=== PATIENT | male | born 1955 | race Caucasian/White ===

== ENCOUNTER → 2021-01-22 00:39 | Outpatient (CLI) | payer MEDICARE, SELFPAY ==
[2021-01-22 18:32] LABS: SARS-CoV-2 RNA PCR Negative
== END ==
PROVIDERS: PCP Family Medicine; Visit Provider Surgery
DX: Z01.812 Encounter for preprocedural laboratory examination (principal); Z20.822 Contact with and (suspected) exposure to COVID-19
CPT/HCPCS: C9803; U0003; U0005

== ENCOUNTER 2021-01-25 00:28 | Day surgery (SDC) | payer MEDICARE, SELFPAY ==
[2021-01-21 15:04] VITALS: BMI 24.7
--- NOTE | 2021-01-24 09:40 | WPDANESEPPF ---
Anes - Initial Pre Proc Eval Procedure: Operation Date: 01/25/21 09:30 Proposed Procedures p Left Inguinal Hernia Repair - Jace Meek MD Date/Time: 01/24/21 09:40 Surgeon: Jace Meek MD Pre Op Diagnosis: Left Inguinal Hernia Patient Data Age: 65 Gender: M Height: 1.83 m Weight: 82.72 kg Allergies Allergy/AdvReac Type Severity Reaction Status Date / Time No Known Allergies Allergy Verified 01/21/21 14:54 Home Medications Medication Instructions Recorded Confirmed Type No Home Medications 10/11/20 01/21/21 History Patient hx anesthesia problems: none Family hx anesthesia problems: none PMFSH Past Medical History Medical History Barretts esophagus DAKOTA (obstructive sleep apnea) Osteoarthritis Surgical History Surgical History H/O shoulder surgery History of appendectomy Family History Family History Father Family history of malignant neoplasm Social History Social History Smoking status: Never smoker Second hand tobacco smoke exposure: Yes Alcohol intake: never Substance use: never Substance use type: does not use Living arrangements: with family Spiritual care concerns: No Anes - Eval Final PreProcedure Day of Procedure 01/24/21 09:40 Patient weight: normal Heart: regular rate and rhythm Lungs: clear to auscultation and normal air movement Airway: Mallampati scale class II Neurological: alert and oriented Last oral intake: >/= 8 hours ASA classification: III Emergent: no Anesthetic plan: proceed Anesthesia type and monitoring: general GIVS and standard monitoring Informed Consent: The patient's anesthetic plan and its attendant risks and benefits were discussed with the patient/family/POA. Questions were solicited and answers provided to the satisfaction of the patient/family/POA.
[2021-01-25 07:52] VITALS: BP 145/86; PULSE 69; RESP 20; TEMP 36.3; O2SAT 100
--- NOTE | 2021-01-25 08:25 | PM.SD2 ---
Same Day Admit/Disch: HPI History of Present Illness Chief complaint: Left Inguinal Hernia Narrative: Vince Valenzuela is a 65 year old male Who has noticed a left groin bulge for at least 9 months. He was seen in the office and found to have a large left inguinal hernia that is reducible. He is taken to surgery now for left inguinal hernia repair under anesthesia. [facility] Past Medical History Medical History Barretts esophagus DAKOTA (obstructive sleep apnea) Osteoarthritis Surgical History Surgical History H/O shoulder surgery History of appendectomy Family History Family History Father Family history of malignant neoplasm Social History Social History Smoking status: Never smoker Second hand tobacco smoke exposure: Yes Alcohol intake: never Substance use: never Substance use type: does not use Living arrangements: with family Spiritual care concerns: No Same Day Admit/Disch: Med Pre-admit Medications Home Medications Medication Instructions Recorded Confirmed Type hydrocodone-acetaminophen 1 - 2 tablet PO Q6H PRN #7 tablet 01/25/21 Rx ibuprofen 600 mg PO Q6H PRN #14 tablet 01/25/21 Rx Exam Const: General: comfortable, no acute distress, alert and awake HENMT: Head: normocephalic and atraumatic Mouth: Yes Normal oral and palatal mucosa present Eyes: Conjunctivae: conjunctivae normal Pupils: Equal, round and reactive pupils present EOM: EOMs intact bilaterally Neck: Neck: normal visual inspection, no lymphadenopathy and nontender Resp: Effort & Inspection: normal respiratory effort Auscultation: clear to auscultation bilaterally Cardio: Rate: regular rate Rhythm: regular rhythm Heart sounds: no gallops, no murmurs and no rubs GI: Inspection: non-distended GI Palp: Yes Soft to palpation, No Tenderness to palpation present (GI), No Hepatomegaly present and No Splenomegaly present : General: Yes no CVA tenderness Male General Exam: Yes hernia ( Large left inguinal hernia, reducible, nontender) Penis: Yes normal penis Scrotum: scrotum normal and inguinal hernia on the left ( Large left inguinal hernia, nontender, reducible.) Testes: Testes normal Skin: Lesions: no lesions Rashes: no rashes Neuro: General: no focal motor deficits and CN's II-XI intact bilaterally Cranial nerves: Yes Equal, round and reactive pupils present, Yes Bilaterally intact EOM present, Yes facial symmetry and Yes Midline tongue present Speech: normal speech Motor exam (neuro): 5/5 motor strength present throughout and Motor abnormalities not present Extrem: General: no clubbing, cyanosis or edema and edema Psych: Affect: normal affect Thought process: Normal thought process present Insight: Good insight present (Psych) DS: Summary Time Spent with Patient Time attestation: Total time spent providing and/or coordinating discharge services: DS: Admitting Diagnosis Admitting Diagnosis Admitting Diagnosis: left inguinal hernia - plan to proceed with outpatient left inguinal hernia repair with mesh. The procedure the risks the benefits have been discussed with the patient. All questions were answered. He understands and agrees to go ahead. Eduardo's esophagus history no dysplasia obstructive sleep apnea Discharge Plan Discharge Patient Disposition: Home, Self-Care Discharge Instructions: 1. May shower the day after surgery over incision. 2. Call office for: -Wound increasingly painful or bleeding -Vomiting -Fever of greater than 101 degrees 3. Expect some blood on dressing or on skin. 4. If no bowel movement for three days, take 1 oz. (30 ml) Milk of Magnesia; if no results, take Fleets enema. 5. No heavy lifting > 15-20 pounds for 2 weeks. 6. No driving for
--- NOTE | 2021-01-25 08:29 | WPDHPUPDATE1 ---
History and Physical Update Update Date/Time: 01/25/21 08:29 History and Physical has been reviewed, including an updated exam of the patient. There are NO changes in the patient's condition. Risks, benefits, and alternatives have been discussed and questions answered. Patient agrees to proceed with procedure.
[2021-01-25] MEDS: ACETAMINOPHEN 500 MG TABLET 1000 MG PO (08:33)
[2021-01-25] MEDS: LACTATED RINGERS 1,000 ML 30 ML IV CONT ×2 (08:40→11:48)
[2021-01-25] MEDS: KETOROLAC 15 MG/ML VIAL (*BKC) IV PUSH (08:46)
[2021-01-25] MEDS: ceFAZolin 2 GM/D5W 50 ML 2 GM/50 ML BAG IVPB (10:13)
[2021-01-25] MEDS: BUPIVACAINE HCL 0.5% PF 30 ML VIAL INFILTRATE (10:35)
--- NOTE | 2021-01-25 11:37 | SUR.OPER ---
EBL 5
[2021-01-25 11:48] VITALS: BP 113/70; PULSE 66; RESP 12; O2SAT 100
--- NOTE | 2021-01-25 12:03 | PM.PROC ---
Procedure Note - Detailed Date of procedure: 01/25/21 Pre-op diagnosis: Left Inguinal Hernia Left inguinal hernia Post-op diagnosis: other (Indirect hernia) Procedure performed: Repair of left inguinal hernia with 6 cm Parietex hernia mesh system Description of procedure: The patient was taken to surgery and IV sedation was administered. The left groin and genitalia were prepped and draped. Proposed incision was marked on the skin. Local was infiltrated into the skin and the deeper subcutaneous tissues. Incision was made and deepened through the subcutaneous. Crossing veins were cauterized and divided. Dissection was carried through Salvador's fascia down to the external oblique aponeurosis. The aponeurosis was exposed as was the external ring. Additional local anesthesia was infiltrated deep to the aponeurosis in the area of the spermatic cord and inguinal canal contents. The aponeurosis was opened laterally and extended medially through the external ring. The leaves of the aponeurosis were dissected free from the spermatic cord. The ileoinguinal nerve was carefully preserved throughout the dissection and was left attached to the spermatic cord. The cord was then mobilized medially on a [place] drain. The cord was dissected back to the internal ring. Dissection was then carried out in the anteromedial spermatic cord. The hernia sac was found and dissected free. The sac was opened so that I could place a finger within the hernia sac and facilitate this dissection. The sac was then dissected back to a high dissection. The base of the hernia sac was suture ligated with 3 0 Vicryl and the sac was amputated. It was discarded. The stump retracted into the retroperitoneum. A 6 centimeter Parietex wilton was chosen. It was folded to form a plug. It was placed in the defect. The edges were sutured to the transversalis fascia with interrupted 3 0 Vicryl suture. The hernia defect was then partially closed with some additional 3 0 Vicryl suture. Patch was then cut to the appropriate size and placed over the inguinal canal floor. The lateral leaves were passed beyond the cord. The cord and ileoinguinal nerve were then laid over the patch. The external oblique aponeurosis was closed with interrupted 3 0 Vicryl suture. Salvador's fascia was closed with interrupted 3 0 Vicryl suture. The subcutaneous was closed with interrupted 4 0 Vicryl suture. Four 0 Vicryl subcuticular skin sutures were placed. The skin was closed finally with a running 4 0 Monocryl skin suture. The wound was dressed with Exofin surgical adhesive. The patient was awakened and taken to recovery in good condition. Sponge and needle counts were correct x2. Anesthesia: MAC and local (0.5% Marcaine with Exparel) Surgeon: Jace Meek MD Certified Bench Jeweler Technician: Neftaly HERNANDEZ Estimated blood loss (mL): 5 Drains: No Packing: No Pathology: none sent Complications: None Condition: stable Disposition: PACU Findings: Indirect inguinal hernia. No sliding hernia was noted.
[2021-01-25 12:15] VITALS: BP 114/75; PULSE 58; RESP 12; O2SAT 98
[2021-01-25 12:45] VITALS: BP 128/81; PULSE 61; RESP 12
[2021-01-25 13:15] VITALS: BP 127/83; PULSE 49; RESP 16
[2021-01-25 13:45] VITALS: BP 140/90; PULSE 48; RESP 16
== END 2021-01-25 14:25 | disposition home or self-care (01) ==
PROVIDERS: PCP Family Medicine; Visit Provider Surgery
PROC: (CPT 49505; principal; 2021-01-25 09:30)
DX: K40.90 Unilateral inguinal hernia, without obstruction or gangrene, not specified as recurrent (principal); K22.70 Barrett's esophagus without dysplasia; G47.33 Obstructive sleep apnea (adult) (pediatric); M19.90 Unspecified osteoarthritis, unspecified site
CPT/HCPCS: 49505; A9270; C1781; C9290; J0690; J1100; J1885; J2250; J2405; J2704; J3010; J7120

== ENCOUNTER 2022-05-07 14:20 | Outpatient (CLI) | payer MEDICARE, OTHER, SELFPAY ==
--- NOTE | ~2022-05-07 | XR_ITS ---
EXAM: XR cervical spine 4-5V DATE: 05/07/2022 14:48 HISTORY: M54.2 - Cervicalgia . COMPARISON: None available. FINDINGS: Intact but partially visualized PEANUT SEPARATOR shunt tubing. Craniocervical association and atlantoaxia l joint are normal. No prevertebral soft tissue swelling. Trace, minimal listheses at multiple cervic al levels. Multilevel facet sclerosis. Multilevel disc space narrowing and marginal osteophytosis, mo st pronounced at C5-6 and C6-7. IMPRESSION: Multilevel degenerative disc disease, trace degenerative listheses, and facet arthropathy .. Reviewed, dictated and finalized at location K. IMPRESSION: Multilevel degenerative disc disease, trace degenerative listheses, and facet arthropathy..
--- NOTE | ~2022-05-07 | XR_ITS ---
EXAM: XR lumbar spine 2-3V DATE: 05/07/2022 14:48 HISTORY: Low back pain . COMPARISON: None available. FINDINGS: Intact but partially visualized GOVERNMENT GUARD shunt tubing. Cholelithiasis. 5 nonrib-bearing lumbar-ty pe vertebral bodies. Pedicles intact. Mild lumbar scoliosis. Trace retrolisthesis of T12 on L1. Remai severiano vertebral bodies aligned. Vertebral body heights are maintained. Multilevel mild degenerative di sc narrowing and marginal osteophytosis. Multilevel facet sclerosis, with narrowing between the spino us processes. IMPRESSION: Minimal grade 1 retrolisthesis of T12 on L1. Multilevel mild degenerative disc disease. M ultilevel moderate facet hypertrophy with interspinous narrowing. Reviewed, dictated and finalized at location K. IMPRESSION: Minimal grade 1 retrolisthesis of T12 on L1. Multilevel mild degene rative disc disease. Multilevel moderate facet hypertrophy with interspinous na rrowing.
== END 2022-05-07 14:21 | disposition home or self-care (01) ==
PROVIDERS: PCP Family Medicine; Visit Provider Family Medicine
DX: M54.50 Low back pain, unspecified (principal); M43.16 Spondylolisthesis, lumbar region; M51.36 Other intervertebral disc degeneration, lumbar region; M50.30 Other cervical disc degeneration, unspecified cervical region
CPT/HCPCS: 72050; 72100

== ENCOUNTER 2022-06-18 15:48 | Outpatient (CLI) | payer MEDICARE, OTHER, SELFPAY ==
--- NOTE | ~2022-06-18 | CT_ITS ---
EXAMINATION: CT abdomen pelvis wo con DATE: 06/18/2022 16:29 INDICATION: NORMAL PRESSURE HYDRCEPHALUS TECHNIQUE: Computed tomography (CT) of the abdomen and pelvis was performed without intravenous contr ast. Automated exposure control and iterative reconstruction technique were employed. The dose-length product was 545.90 mGy-cm. COMPARISON: 02/21/2019. FINDINGS: Inferior portion of shunt tubing extending down the right thorax, traversing the midline and terminat ing in left mid abdomen. No fluid collection or definite soft tissue mass at the catheter tip. Lower thorax: Coronary artery calcifications. Small hiatal hernia. Wall thickening of the distal esop hagus. Liver: Simple left liver lobe cyst Biliary/Gallbladder: Gallbladder is collapsed. No bile duct dilation. Pancreas: No mass or duct dilation. Spleen: Normal. Adrenals:No mass. Kidneys: Left midpole cyst. Bilateral nonobstructive calculi. GI tract: No small or large bowel dilation. Appendix not visualized Diverticulosis without diverticul itis. Mesentery/Peritoneum: No ascites, mass, or free air. Retroperitoneum: No mass. Atherosclerotic abdominal aortic and/or arterial calcifications. Pelvis: Bladder wall thickening likely secondary to outlet compromise from prostatomegaly. Soft Tissues: Mild bilateral gynecomastia. Bones: No acute osseous finding. IMPRESSION: Intact SASH INSTALLER shunt tubing. Mild mass effect. Small hiatal hernia and distal esophageal wall thickening, likely representing esophagitis. Cholelithiasis. Nonobstructive nephrolithiasis. Prostatomegaly with likely outlet compromise. Reviewed, dictated and finalized at location K. IMPRESSION: Intact SASH INSTALLER shunt tubing. Mild mass effect. Small hiatal hernia and distal esopha geal wall thickening, likely representing esophagitis. Cholelithiasis. Nonobstr uctive nephrolithiasis. Prostatomegaly with likely outlet compromise.
--- NOTE | ~2022-06-18 | CT_ITS ---
EXAMINATION: CT brain wo con DATE: 06/18/2022 16:23 INDICATION: NORMAL PRESSURE HYDRCEPHALUS . TECHNIQUE: Computed tomography (CT) of the head was performed without intravenous contrast. The mA wa s adjusted according to patient size. Iterative reconstruction technique was employed. The dose-lengt h product was 681.00 mGy-cm. COMPARISON: None FINDINGS: Right frontal RECORDS MANAGEMENT TECHNICIAN shunt, terminates in the frontal horn of the left lateral ventricle. Shunt tubing in tact. No acute intracranial hemorrhage. Bilateral heterogeneous extra-axial fluid collections measuring 3 c m on the right and 1.2 cm on the left, with irregular isodense clot throughout both collections. 1 cm right to left midline shift. No intracranial mass. Ventricular system enlargement, greater on th e left, likely secondary to chronic enlargement with a greater degree of compression on the right fro m the larger right-sided extra-axial collection. No acute ischemic infarct. Unremarkable dural venous sinus attenuation. No acute osseous abnormality. The aerated spaces are clear. IMPRESSION: Large right and moderate left subacute subdural hemorrhages. 1 cm right to left subfalcine herniation . Compression of the right lateral ventricle from the larger right subdural fluid collection, presuma parviz overlying chronic ventricular dilation. Worsening ventricular dilation, or left ventricular entra pment are difficult to exclude without comparison studies. Shunt tubing is intact. Results reported telephonically to Dr. Eid by Dr. Ibarra at 4:50 PM on 06/18/2022. Reviewed, dictated and finalized at location K. IMPRESSION: Large right and moderate left subacute subdural hemorrhages. 1 cm right to left subfalcine herniation. Compression of the right lateral ventricle from the lar chani right subdural fluid collection, presumably overlying chronic ventricular d ilation. Worsening ventricular dilation, or left ventricular entrapment are dif ficult to exclude without comparison studies. Shunt tubing is intact. Results reported telephonically to Dr. Eid by Dr. Ibarra at 4:50 PM on 06/18.
== END 2022-06-18 15:49 | disposition home or self-care (01) ==
PROVIDERS: PCP Family Medicine; Visit Provider Neurological Surgery
DX: G91.9 Hydrocephalus, unspecified (principal); Z98.2 Presence of cerebrospinal fluid drainage device; N62 Hypertrophy of breast; I25.10 Atherosclerotic heart disease of native coronary artery without angina pectoris; K57.30 Diverticulosis of large intestine without perforation or abscess without bleeding; K44.9 Diaphragmatic hernia without obstruction or gangrene; N20.0 Calculus of kidney; K76.89 Other specified diseases of liver
CPT/HCPCS: 70450; 74176

== ENCOUNTER 2022-07-02 15:07 | Outpatient (CLI) | payer MEDICARE, SELFPAY ==
--- NOTE | ~2022-07-02 | CT_ITS ---
EXAMINATION: CT brain wo con DATE: 07/02/2022 15:23 INDICATION: Chronic subdural hematoma TECHNIQUE: Computed tomography (CT) of the head was performed without intravenous contrast. Sagittal and coronal reconstructions were performed. The mA was adjusted according to patient size. Iterative reconstruction technique was employed. The dose-length product was 605.33 mGy-cm. COMPARISON: head CT dated 06/18/22 FINDINGS: Again seen is a right frontal ventriculoperitoneal shunt which extends into the anterior horn of the right ventricle with unchanged distal tip appearing to extending to the anterior horn of the left lat eral ventricle minimally to the left of the septum the anterior horns of the left and righ t lateral ventricles. Again seen are bilateral subdural hematomas with mixed attenuation of fluid. This larger on the right where it extends over the right frontal and parietal lobes measuring up to 2.6 cm in maximal thickne ss which appears decreased from prior maximal thickness of 3.0 cm. The smaller left subdural collecti on is centered at the frontoparietal region measures up to 6 mm in thickness, decreased from 1.2 cm. There is persistent mass effect resulting primarily from the right-sided subdural hematoma which part ially effaces the right lateral ventricle and results in some midline shift which is decreased from a pproximately 10 mm at the level of the third ventricle on the prior study to currently measuring appr oximately 7-8 mm. The degree of asymmetric decreased volume of the right lateral ventricle relative t o the left has decreased since the prior study. Similarly the decrease in volume of the third ventric le on the prior study has also improved in the current study. The left lateral ventricle which remain s dilated has increased in volume since the prior study however the baseline remains on lung. No acute intracranial hemorrhage, acute infarction or other new extra axial fluid collection. No mass /mass effect. The orbits, paranasal sinuses and mastoid air cells are normal. IMPRESSION: 1. Interval decrease in size of subacute to chronic moderate to large right and small left subdural h ematomas with decrease in now 7-8 mm right to left midline shift and decrease in the previously more prominent asymmetric secondary volume loss in the third and right lateral ventricles. 2. Unchanged ventriculoperitoneal shunt extending to the anterior horn of the left lateral ventricle which is increased in volume since the prior study. The baseline, the ventricles prior to the subdura l hematomas is unknown and it is unclear whether this represents either a return to baseline level fi ssure with decrease in the mass effect from the subdural hematomas or increasing hydrocephalus. Recom mend correlation with earlier prior outside imaging. Reviewed, dictated and finalized at location A. IMPRESSION: 1. Interval decrease in size of subacute to chronic moderate to large right and small left subdural hematomas with decrease in now 7-8 mm right to left midlin e shift and decrease in the previously more prominent asymmetric secondary volu me loss in the third and right lateral ventricles. 2. Unchanged ventriculoperitoneal shunt extending to the anterior horn of the l eft lateral ventricle which is increased in volume since the prior study. The b aseline, the ventricles prior to the subdural hematomas is unknown and it is un clear whether this represents either a return to baseline level fissure with de crease in the mass effect from the subdural hematomas or increasing hydrocephal us. Recommend correlation with earlier prior outside imaging.
== END 2022-07-02 15:08 | disposition home or self-care (01) ==
LOC: ANHIMG 15:09
PROVIDERS: PCP Family Medicine; Visit Provider Neurological Surgery
DX: I62.03 Nontraumatic chronic subdural hemorrhage (principal)
CPT/HCPCS: 70450

== ENCOUNTER 2022-09-24 16:01 | Outpatient (CLI) | payer MEDICARE, SELFPAY ==
--- NOTE | ~2022-09-24 | CT_ITS ---
EXAMINATION: CT brain wo con DATE: 09/24/2022 16:34 INDICATION: Ventricular shunt. Unsteady gait. History of subdural hematoma. TECHNIQUE: Computed tomography (CT) of the head was performed without intravenous contrast. The mA wa s adjusted according to patient size. Iterative reconstruction technique was employed. Exam dose: 60 5.33 mGy-cm total exam DLP. COMPARISON: 07/02/2022 CT brain FINDINGS: Since 07/02/2022 there is considerably diminished size of the right chronic subdural hematom a, currently measuring up to approximately 8 mm versus approximately 28 mm depth previously. There is corresponding interval virtual resolution of midline shift and mass effect effect upon the right lat eral ventricle. Right-sided ventricular shunt terminating at the left frontal horn is unchanged in position since 06/10. No intracranial mass lesion or interval hemorrhage or new mass effect is evident. There is fourth, third and lateral ventriculomegaly. No fracture or bone destruction of the cranial vault. Included mastoid air cells and paranasal sinuse s are normally developed and aerated. IMPRESSION: Considerably diminished size of chronic right subdural hematoma and associated diminishe d mass effect since 07/02/2022 Right ventricular shunt Reviewed, dictated and finalized at Location A. Reviewed, dictated and finalized at location A. NCIAL AID OFFICER IMPRESSION: Considerably diminished size of chronic right subdural hematoma an d associated diminished mass effect since 07/02/2022 Right ventricular shunt
== END 2022-09-24 16:02 | disposition home or self-care (01) ==
PROVIDERS: PCP Family Medicine; Visit Provider Neurological Surgery
DX: S06.5X0A Traumatic subdural hemorrhage without loss of consciousness, initial encounter (principal); Z98.2 Presence of cerebrospinal fluid drainage device
CPT/HCPCS: 70450

== ENCOUNTER → 2022-12-01 15:35 | Outpatient (CLI) | payer MEDICARE, SELFPAY ==
--- NOTE | ~2022-12-01 | CT_ITS ---
Corrected Report Correction to Ordering Provider 12/08/2022 Barb This report was recreated on 12/08/2022. Original report was signed by Ravi Jackson M.D. on 12/01/2022 16:57 FIRE REGULATOR. EXAMINATION: CT brain wo con DATE: 12/01/2022 15:54 INDICATION: Normal pressure hydrocephalus. TECHNIQUE: Computed tomography (CT) of the head was performed without intravenous contrast. The mA was adjusted according to patient size. Iterative reconstruction technique was employed. The dose-length product was 807.11 mGy- cm. COMPARISON: Head CT 09/24/2022, 07/02/2022, 06/18/2022 FINDINGS: There is no acute infarction or abnormal intracranial mass lesion. There is a right parietal subdural hematoma is hypodense to renner matter with 2 mm greatest thickness with interval improvement. The lateral, third, and fourth ventricles are enlarged out of proportion to the size of the sulci. There is a right frontal shunt catheter that passes through right lateral ventricle with tip in frontal horn of left lateral ventricle. The orbits are normal. There is mild mucosal thickening in the paranasal sinuses. The mastoid air cells are normal. IMPRESSION: 1. Stable ventriculomegaly with shunt catheter in expected position. 2. Small right parietal subdural hematoma with improvement from 09/24/2022. Reviewed, dictated and finalized at location A. REGULATOR MTDD
== END ==
PROVIDERS: PCP Family Medicine; Visit Provider Neurological Surgery
DX: G91.2 (Idiopathic) normal pressure hydrocephalus (principal); G93.89 Other specified disorders of brain; S06.5X0D Traumatic subdural hemorrhage without loss of consciousness, subsequent encounter; M47.22 Other spondylosis with radiculopathy, cervical region; Z98.2 Presence of cerebrospinal fluid drainage device; X58.XXXD Exposure to other specified factors, subsequent encounter
CPT/HCPCS: 70450

== ENCOUNTER → 2023-06-16 10:40 | Outpatient (CLI) | payer MEDICARE, SELFPAY ==
--- NOTE | ~2023-06-16 | CT_ITS ---
Non-contrast Head CT History: ALIGNER shunt placement COMPARISON: 12/01/2022 Technique: Axial non-contrast imaging of the brain was performed. Dose reduction technique was used on this scan by utilizing automated exposure control and iterative reconstruction technique. The dose -length product (DLP) was 726.40 mGy-cm. Findings: Right frontal ventriculostomy shunt catheter is in place, with right frontal darlene hole. The re is moderate to advanced diffuse dilatation of ventricular system, essentially stable from prior ex am. There is a small subacute to chronic subdural hematoma along the right cerebral convexity, measur ing 4.5 mm in maximal thickness. The visualized paranasal sinuses and mastoid air cells are clear. Impression: Right ventricular dilatation catheter in place, stable moderate to severe ventricular system dilatati on. Small subacute to chronic subdural hematoma/hygroma along the right cerebral convexity, new from prio r exam. Reviewed, dictated and finalized at location . Impression: Right ventricular dilatation catheter in place, stable moderate to severe ventr icular system dilatation. Small subacute to chronic subdural hematoma/hygroma along the right cerebral co nvexity, new from prior exam.
== END ==
PROVIDERS: PCP Family Medicine; Visit Provider Family Medicine
DX: Z45.41 Encounter for adjustment and management of cerebrospinal fluid drainage device (principal); S06.2XAA Diffuse traumatic brain injury with loss of consciousness status unknown, initial encounter
CPT/HCPCS: 70450

== ENCOUNTER 2024-05-23 13:49 | Outpatient (CLI) | payer MEDICARE, SELFPAY ==
[2024-05-23 19:48] LABS: Hematocrit 43.5 % (42.0-52.0); Hemoglobin 13.4 g/dL (14.0-18.0); Mean Corpuscular HGB Conc 30.8 g/dl (32-36); Mean Corpuscular Hemoglobin 30.1 pg (26-34); Mean Corpuscular Volume 97.8 fl (80-100); Mean Platelet Volume 10.5 fl (7.4-10.4); Platelet Count Result 329 k/mm3 (150-375); Red Blood Count 4.45 M/mm3 (4.6-6.20); Red Cell Distribution Width 14.1 % (11.5-14.5); White Blood Count 6.5 K/mm3 (4.5-10.0)
[2024-05-23 22:18] LABS: Alanine Aminotransferase 22 U/L (6-50); Albumin Level 4.1 g/dL (3.5-5.1); Alkaline Phosphatase 99 U/L (38-126); Anion Gap 9 mmol/L (4-12); Aspartate Amino Transferase 47 U/L (17-59); Bilirubin,Total 0.8 mg/dL (0.2-1.3); Blood Urea Nitrogen 20 mg/dL (9-20); Calcium 8.8 mg/dL (8.4-10.2); Carbon Dioxide 28 mmol/L (22-30); Chloride 104 mmol/L (98-107); Cholesterol 250 mg/dL (0-200); Estimated Glomerular Filt Rate 60; Glucose 110 mg/dL (65-110); HDL Direct 72 mg/dL; Potassium 4.1 mmol/L (3.4-5.0); Sodium 141 mmol/L (137-145); Triglycerides 111 mg/dL (<150)
[2024-05-23 22:29] LABS: LDL Cholesterol Direct 141 mg/dL
== END 2024-05-23 13:50 | disposition home or self-care (01) ==
PROVIDERS: PCP Nurse Practitioner Adult Health; Visit Provider Nurse Practitioner Adult Health
DX: Z12.5 Encounter for screening for malignant neoplasm of prostate (principal); R79.89 Other specified abnormal findings of blood chemistry; G47.33 Obstructive sleep apnea (adult) (pediatric); N52.9 Male erectile dysfunction, unspecified; Z13.9 Encounter for screening, unspecified; Z13.220 Encounter for screening for lipoid disorders; Z13.6 Encounter for screening for cardiovascular disorders
CPT/HCPCS: 36415; 80053; 80061; 84153; 85027; G0103

== ENCOUNTER 2024-05-30 12:47 | Outpatient (CLI) | payer MEDICARE, SELFPAY ==
--- NOTE | ~2024-05-30 | CT_ITS ---
CT brain wo con Ordering provider: Ronel Carrillo APRN History: 68 years Male with . 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 Comparison: June 16, 2023 Technique: CT of the head without contrast. Radiation reduction technique utilized. DLP is 726. 4 mGy-cm. FINDINGS: BRAIN PARENCHYMA AND CSF SPACES: Chronic subdural hematoma is seen in the right frontal lobe parieto- occipital area and and the left left frontal to parietal area with maximum thickness on the right 4 m m and on the left 4 mm. Shunt tube is seen in the right frontal area with the tip in the left frontal horn. Ventricular dilatation seen suggestive of hydrocephalus. No midline shift, or mass effect. The brain parenchyma and CSF spaces are otherwise normal. VISUALIZED PARANASAL SINUSES: Well aerated. MASTOIDS: Well aerated. BONES: The bones appear intact. SOFT TISSUES: Visualized nasopharynx is normal. Superficial soft tissues are normal. IMPRESSION: Bilateral chronic subdural hematoma is unchanged from previous examination. Hydrocephalus with the right frontal shunt tube unchanged from previous examination. Reviewed, dictated and finalized at location A. IMPRESSION: Bilateral chronic subdural hematoma is unchanged from previous examination. Hydrocephalus with the right frontal shunt tube unchanged from previous examina tion.
== END 2024-05-30 12:48 ==
PROVIDERS: Visit Provider Nurse Practitioner Adult Health
DX: Q03.1 Atresia of foramina of Magendie and Luschka (principal); I62.03 Nontraumatic chronic subdural hemorrhage
CPT/HCPCS: 70450

== ENCOUNTER 2025-04-10 12:50 | Outpatient (CLI) | payer MEDICARE, SELFPAY ==
--- NOTE | ~2025-04-10 | CT_ITS ---
Non-contrast Head CT History: Hydrocephalus COMPARISON: 05/30/2024 Technique: Axial non-contrast imaging of the brain was performed. Dose reduction technique was used on this scan by utilizing automated exposure control and iterative reconstruction technique. The dose -length product (DLP) was 645.69 mGy-cm. Findings: There is no evidence of intracranial hemorrhage, mass lesion, or acute infarct. 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 Small chronic subdural hygromas are similar to prio r exam bilaterally. The calvarium appears normal. The visualized paranasal sinuses and mastoid air c ells are clear. Impression: No significant interval change. 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 Stable small chronic subdural hygromas. Reviewed, dictated and finalized at [facility]. Impression: No significant interval change. 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 Stable small chronic subdural hygromas.
== END 2025-04-10 12:51 | disposition home or self-care (01) ==
LOC: GOSHIMG 12:51
PROVIDERS: PCP Nurse Practitioner Adult Health; Visit Provider Nurse Practitioner Adult Health
DX: I62.03 Nontraumatic chronic subdural hemorrhage (principal); G91.9 Hydrocephalus, unspecified
CPT/HCPCS: 70450